=== PATIENT | female | born 1980 | race Caucasian/White ===

== ENCOUNTER 2022-03-11 10:10 | Day surgery (SDC) | payer OTHER, SELFPAY ==
[2022-03-11] VITALS (21 sets, daily range): BP systolic 95–122; BP diastolic 55–92; PULSE 43–83; RESP 10–21; TEMP 36–36.3; O2SAT 96–100
--- NOTE | ~2022-03-11 | CT_ITS ---
EXAMINATION: CT abdomen pelvis w con DATE: 03/11/2022 13:08 INDICATION: Rectal pain, abscess. Nausea and vomiting. TECHNIQUE: Computed tomography (CT) of the abdomen and pelvis was performed with 100 CC Omnipaque 300 intravenous contrast. Automated exposure control and iterative reconstruction technique were employe d. Exam dose: 248.23 mGy-cm total exam DLP. COMPARISON: None. FINDINGS: The lung bases are clear. Normal heart size. No pericardial or pleural effusion. The liver, gallbladder, bile ducts, spleen, pancreas and pancreatic duct are unremarkable. Normal morphology of the adrenal glands. No renal mass lesion or urinary tract calculus or hydroureteronephrosis. The urinary bladder is unrem arkable. Uterus and adnexal areas are unremarkable other than approximately 2.5 cm right ovarian cyst . Up to 2.5 x 3 cm x 3.4 cm abscess in the posterior perirectal area is noted, with enhancing soft tiss ue capsule. Diverticulosis of the sigmoid colon; no CT evidence of diverticulitis. No bowel obstruction or intrap eritoneal free air is detected. Normal caliber of the abdominal aorta. No intraperitoneal or retroperitoneal or pelvic mass lesion or adenopathy or ascites. Small fat-containing umbilical hernia. No suspicious osteolytic or osteoblastic lesions. IMPRESSION: 2.5 x 3 x 3.4 cm posterior perirectal abscess Diverticulosis of sigmoid colon Reviewed, dictated and finalized at [facility]. Reviewed, dictated and finalized at [facility].
[2022-03-11 10:39] LABS: Basophils Percent Auto 0.2 % (0.2-1.2); Eosinophils Absolute Auto 0.1 K/mm3 (0-0.3); Eosinophils Percent Auto 0.4 % (0-4.4); Hematocrit 42.3 % (37.0-47.0); Hemoglobin 14.4 g/dL (12.0-15.0); Immature Granulocyte Absolute 0.09 K/mm3 (0.00-0.031); Immature Granulocyte Percent A 0.6 % (0-0.5); Lymphocytes Absolute Auto 1.13 K/mm3 (0.9-3.2); Mean Corpuscular Hemoglobin 29.9 pg (26-34); Mean Corpuscular Volume 87.9 fl (80-100); Mean Platelet Volume 9.5 fl (7.4-10.4); Monocytes Absolute Auto 0.9 K/mm3 (0.1-0.6); Monocytes Percent Auto 5.8 % (2.6-8.5); Neutrophils Absolute Auto 13.9 K/mm3 (1.3-6.7); Platelet Count Result 282 k/mm3 (150-375); Red Blood Count 4.81 M/mm3 (4.2-5.4); Red Cell Distribution Width 11.9 % (11.5-14.5); White Blood Count 16.1 K/mm3 (4.5-10.0)
[2022-03-11 10:49] LABS: Alanine Aminotransferase 31 U/L (6-35); Albumin Level 4.5 g/dL (3.5-5.1); Alkaline Phosphatase 66 U/L (38-126); Anion Gap 12 mmol/L (8-16); Aspartate Amino Transferase 29 U/L (14-36); Bilirubin,Total 0.9 mg/dL (0.2-1.3); Blood Urea Nitrogen 14 mg/dL (7-17); Calcium 8.7 mg/dL (8.4-10.2); Carbon Dioxide 22 mmol/L (22-30); Chloride 106 mmol/L (98-107); Estimated CRCL calculation 67 ml/min; Estimated Glomerular Filt Rate > 60; Glucose 109 mg/dL (65-110); Lipase 62 U/L (23-300); Potassium 3.8 mmol/L (3.4-5.0); Sodium 140 mmol/L (137-145)
--- NOTE | 2022-03-11 10:57 | ED.GENADULT ---
HPI - General Adult General Chief complaint: Nausea/Vomiting/Diarrhea Stated complaint: rectal abscess with nausea and vomiting Time Seen by Provider: 03/11/22 10:14 Source: RN notes reviewed History of Present Illness HPI narrative: Patient presents emergency department from home for nausea vomiting. Patient states that she has a history of a rectal abscess that is post be having surgery on March 17 she states that the pain became more severe last night and was associated with nausea vomiting patient states she is had numerous episodes of nausea vomiting. States she is on antibiotics and is on Cipro and Flagyl per her abscess she has been seen by clinic In [facility] states that she did take tramadol last night with minimal relief she denies any fevers or chills chest pain shortness of breath or any other symptoms Related Data Allergies Allergy/AdvReac Type Severity Reaction Status Date / Time No Known Allergies Allergy Verified 03/11/22 10:12 Review of Systems Review of Systems: Gen.: Denies fevers or chills ENT: Denies congestion Respiratory: Denies shortness of breath or cough CV: Denies chest pain or palpitations GI: See HPI Musculoskeletal: Denies back pain or muscle pain Neuro: Denies numbness, tingling, weakness or focal weakness Skin: Denies rash Except as documented, all other systems reviewed and negative PMFSH Past Medical History Medical History (Updated 03/11/22 @ 16:07 by Richie Casillas DO) Patient denies significant medical history Social History Social History (Updated 03/11/22 @ 10:58 by Richie Casillas DO) Smoking status: Never smoker Exam Narrative: APPEARANCE: No acute distress, nontoxic, resting in bed EYES: EOMI HEENT: Normocephalic, atraumatic, OMM RESPIRATORY: No respiratory distress Clear to auscultation bilaterally with no rhonchi wheezing or rales. CARDIOVASCULAR: Regular rate and rhythm without murmurs rubs or gallops. ABDOMINAL: Soft, nontender, nondistended, no rebound or guarding Rectum: Tenderness and fluctuance with swelling in the 12:00 aspect no active drainage no hemorrhoids MUSCULOSKELETAl: Moves all extremities. No clubbing, cyanosis or edema. NEURO: Awake and alert. Following commands, speech normal, no focal deficits SKIN:: Warm, dry. No rashes lesions or abrasions PSYCHIATRIC: Normal affect/mood, Course Course Emergency Course: Called and discussed with Dr. Young who will come to the emergency room to evaluate the patient recommends no antibiotics at this time Dr Young and plan take patient to the OR for drainage Discussed with patient results of workup and diagnosis. Discussed need for follow-up with primary care, proper use of medication, and reasons to return to the emergency department. Patient understands and agrees to current treatment plan Vital Signs Vital signs: Vital Signs Temperature 97.4 F L 03/11/22 10:13 Pulse Rate 82 03/11/22 10:13 Respiratory Rate 16 03/11/22 10:13 Blood Pressure 122/79 03/11/22 10:13 Pulse Oximetry 100 03/11/22 10:13 Oxygen Delivery Room Air 03/11/22 10:13 Temperature 97.4 F L 03/11/22 10:13 Pulse Rate 55 L 03/11/22 14:45 Respiratory Rate 19 03/11/22 14:45 Blood Pressure 110/63 03/11/22 13:46 Pulse Oximetry 98 03/11/22 14:45 Oxygen Delivery Room Air 03/11/22 10:13 Medical Decision Making Vital Signs Vital Signs: Vital Signs Temperature 97.4 F L 03/11/22 10:13 Pulse Rate 82 03/11/22 10:13 Respiratory Rate 16 03/11/22 10:13 Blood Pressure 122/79 03/11/22 10:13 Pulse Oximetry 100 03/11/22 10:13 Oxygen Delivery Room Air 03/11/22 10:13 Temperature 97.4 F L 03/11/22 10:13 Pulse Rate 55 L 03/11/22 14:45 Respiratory Rate 19 03/11/22 14:45 Blood Pressure 110/63 03/11/22 13:46 Pulse Oximetry 98 03/11/22 14:45 Oxygen Delivery Room Air 03/11/22 10:13 Lab Data Result diagrams: 03/11/22 10:31 03/11/22 10:31
[2022-03-11] MEDS: SODIUM CHLORIDE 0.9% IV 1,000 ML 999 ML IV CONT (11:19)
[2022-03-11] MEDS: ONDANSETRON INJ 4 MG/2 ML VIAL IV PUSH ×2 (11:19→14:43)
[2022-03-11] MEDS: MORPHINE SULFATE (*CRX) 4 MG/ML INJ IV PUSH (11:20)
[2022-03-11 11:36] LABS: Lactic Acid Reflex 1.1 mmol/L (0.7-2.0)
[2022-03-11 12:02] LABS: SARS-CoV-2 RNA PCR Positive
[2022-03-11 12:48] LABS: Appearance Urine Cloudy (Clear); Bilirubin Urine Negative (Negative); Blood Urine 3+ (Negative); Glucose Urine UA Negative (Negative); Ketones Urine 3+ mg/dL (Negative); Leukocyte Esterase Ur 1+ LEU/UL (Negative); Nitrate Urine Negative (Negative); Protein Urine 1+ mg/dL (Negative); Specific Grav Ur 1.025 (1.001-1.035); Urobilinogen Urine 0.2 mg/dL (<2.0); pH Urine 5.5 (5.0-9.0)
[2022-03-11 12:50] LABS: Bacteria Urine Trace /hpf; Mucus Urine Rare /lpf; Squamous Epithelial Cell Urine Many /hpf (Few); WBC Urine >75 /hpf
[2022-03-11 13:23] LABS: Add Urine Microscopic? YES; Color Urine Dark Yellow (Yellow)
--- NOTE | 2022-03-11 14:37 | WPDANESEPPF ---
Anes - Initial Pre Proc Eval Procedure: Operation Date: 03/11/22 14:30 Proposed Procedures p Incision and Drainage Magdalena-Rectal Abscess - Ben Young MD Date/Time: 03/11/22 14:37 Pre Op Diagnosis: Perirectal abscess Patient Data Age: 41 Gender: F Height: 1.6 m Weight: 56.36 kg Last Vital Signs Temp 36.3 C L 03/11/22 10:13 Pulse 62 03/11/22 13:15 Resp 12 03/11/22 13:15 BP 101/73 03/11/22 12:46 Pulse Ox 100 03/11/22 13:15 O2 Del Method Room Air 03/11/22 10:13 Allergies Allergy/AdvReac Type Severity Reaction Status Date / Time No Known Allergies Allergy Verified 03/11/22 10:12 Home Medications Medication Instructions Recorded Confirmed Type hydrocodone 5 mg-acetaminophen 325 1 - 2 tablet PO Q6H PRN pain #10 03/11/22 Rx mg tablet tabs ketorolac 10 mg tablet 10 mg PO Q6H 4 days #16 tabs 03/11/22 Rx Laboratory Tests 03/11/22 03/11/22 03/11/22 10:31 10:31 11:18 WBC 16.1 K/mm3 H K/mm3 (4.5-10.0) RBC 4.81 M/mm3 M/mm3 (4.2-5.4) Hgb 14.4 g/dL g/dL (12.0-15.0) Hct 42.3 % % (37.0-47.0) MCV 87.9 fl fl (80-100) MCH 29.9 pg pg (26-34) MCHC 34.0 g/dl g/dl (32-36) RDW 11.9 % % (11.5-14.5) Plt Count 282 k/mm3 k/mm3 (150-375) MPV 9.5 fl fl (7.4-10.4) Immature Gran % (Auto) 0.6 % H % (0-0.5) Neut % (Auto) 86.0 % H % (45.5-73.1) Lymph % (Auto) 7.0 % L % (18.3-44.2) [place] % (Auto) 5.8 % % (2.6-8.5) Eos % (Auto) 0.4 % % (0-4.4) Baso % (Auto) 0.2 % % (0.2-1.2) Lymph # (Auto) 1.13 K/mm3 K/mm3 (0.9-3.2) [place] # (Auto) 0.9 K/mm3 H K/mm3 (0.1-0.6) Eos # (Auto) 0.1 K/mm3 K/mm3 (0-0.3) Baso # (Auto) 0.0 K/mm3 K/mm3 (0.0-0.1) Abs Immat Gran (auto) 0.09 K/mm3 H K/mm3 (0.00-0.031) Absolute Neuts (auto) 13.9 K/mm3 H K/mm3 (1.3-6.7) Absolute Nucleated RBC 0.0 K/mm3 K/mm3 (0.0-0.012) Nucleated RBC % 0.0 % % (0.0-0.2) Sodium 140 mmol/L mmol/L (137-145) Potassium 3.8 mmol/L mmol/L (3.4-5.0) Chloride 106 mmol/L mmol/L (98-107) Carbon Dioxide 22 mmol/L mmol/L (22-30) Anion Gap 12 mmol/L mmol/L (8-16) BUN 14 mg/dL mg/dL (7-17) Creatinine 0.80 mg/dL mg/dL (0.7-1.0) Estim Creat Clear Calc 67 ml/min ml/min Estimated GFR > 60 (59 - ) Glucose 109 mg/dL mg/dL (65-110) Lactic Acid Calcium 8.7 mg/dL mg/dL (8.4-10.2) Total Bilirubin 0.9 mg/dL mg/dL (0.2-1.3) AST 29 U/L U/L (14-36) ALT 31 U/L U/L (6-35) Alkaline Phosphatase 66 U/L U/L (38-126) Total Protein 8.0 g/dL g/dL (6.3-8.2) Albumin 4.5 g/dL g/dL (3.5-5.1) Lipase 62 U/L U/L (23-300) Urine Color Urine Appearance Urine pH Ur Specific [place] Urine Protein Urine Glucose (UA) Urine Ketones Ur Blood (Man) Urine Nitrate Urine Bilirubin Urine Urobilinogen Leukocyte Esterase Rfl Urine RBC Urine WBC Ur Squamous Epith Cells Urine Bacteria Urine Mucus SARS-CoV-2 RNA (RT-PCR) Positive A 03/11/22 03/11/22 11:18 12:34 WBC RBC Hgb Hct MCV MCH MCHC RDW Plt Count MPV Immature Gran % (Auto) Neut % (Auto) Lymph % (Auto) [place] % (Auto) Eos % (Auto) Baso % (Auto) Lymph # (Auto) [place] # (Auto) Eos # (Auto) Baso # (Auto) Abs Immat Gran (auto) Absolute Neut
[2022-03-11] MEDS: MORPHINE SULFATE (*CRX) 2 MG/ML INJ IV PUSH (14:42)
--- NOTE | 2022-03-11 15:04 | WPDHPUPDATE1 ---
History and Physical Update Update Date/Time: 03/11/22 15:04 History and Physical has been reviewed, including an updated exam of the patient. There are NO changes in the patient's condition. Risks, benefits, and alternatives have been discussed and questions answered. Patient agrees to proceed with procedure.
--- NOTE | 2022-03-11 15:04 | PM.SD2 ---
Same Day Admit/Disch: HPI History of Present Illness Chief complaint: Perirectal abscess Narrative: Romelia Gutierrez is a 41 year old female began having rectal pain about 5 days ago. She hoped this would go away and continued to go to work. The pain got worse. She saw her primary physician on Monday, 2 days ago, and no source of the pain could be seen. She was started on antibiotics. The pain became almost unbearable. She was given an appointment for a drainage procedure in [place] in early March. However, the pain was unbearable and she came to the emergency room today. In the emergency room she was noted to have severe rectal pain and a bulging in the posterior midline. CT scan was done and did show a posterior space perirectal abscess. The patient did have some rectal pain in 2019. Attempts were made to drain this in the emergency room and she was given antibiotics. None of this really worked and but because of the COVID pandemic, she did not follow-up and eventually it got better. Her fiance has had COVID last week. She has not had any symptoms of upper respiratory infection but was tested in the emergency room and found to be COVID positive. She was seen in the emergency room and plans are to take her for surgery to drain the perirectal abscess. PENDING SALE TO [facility] Past Medical History Medical History (Updated 03/11/22 @ 16:07 by Richie Casillas DO) Patient denies significant medical history Social History Social History (Updated 03/11/22 @ 10:58 by Richie Casillas DO) Smoking status: Never smoker Same Day Admit/Disch: Med Pre-admit Medications Home Medications Medication Instructions Recorded Confirmed Type hydrocodone 5 mg-acetaminophen 325 1 - 2 tablet PO Q6H PRN pain #10 03/11/22 Rx mg tablet tabs ketorolac 10 mg tablet 10 mg PO Q6H 4 days #16 tabs 03/11/22 Rx Exam Const: General: comfortable, no acute distress, alert and awake HENMT: Head: normocephalic and atraumatic Mouth: Yes Normal oral and palatal mucosa present Eyes: Conjunctivae: conjunctivae normal Pupils: Equal, round and reactive pupils present EOM: EOMs intact bilaterally Neck: Neck: normal visual inspection, no lymphadenopathy and nontender Resp: Effort & Inspection: normal respiratory effort Auscultation: clear to auscultation bilaterally Cardio: Rate: regular rate Rhythm: regular rhythm Heart sounds: no gallops, no murmurs and no rubs GI: Inspection: non-distended GI Palp: Yes Soft to palpation, No Tenderness to palpation present (GI), No Hepatomegaly present and No Splenomegaly present Rectal Exam: abscess (Posterior midline, extreme tenderness) Skin: Lesions: no lesions Rashes: no rashes Neuro: General: no focal motor deficits and CN's II-XI intact bilaterally Cranial nerves: Yes Equal, round and reactive pupils present, Yes Bilaterally intact EOM present, Yes facial symmetry and Yes Midline tongue present Speech: normal speech Motor exam (neuro): 5/5 motor strength present throughout and Motor abnormalities not present Extrem: General: no clubbing, cyanosis or edema and edema Psych: Affect: normal affect Thought process: Normal thought process present Insight: Good insight present (Psych) DS: Data Data Completed and Pending Labs on day of discharge: Labs from last 24 hours 03/11/22 03/11/22 03/11/22 12:34 11:18 11:18 WBC RBC Hgb Hct MCV MCH MCHC RDW Plt Count MPV Immature Gran % (Auto) Neut % (Auto) Lymph % (Auto) [place] % (Auto) Eos % (Auto) Baso % (Auto) Lymph # (Auto) [place] # (Auto) Eos # (Auto) Baso # (Auto) Abs Immat Gran (auto) Absolute Neuts (auto) Absolute Nucleated RBC Nucleated RBC % Sodium Potassium Chloride Carbon Dioxide Anion Gap BUN Creatinine Estim Creat Clear Calc Estimated GFR Glucose Lactic Acid 1.1 Calcium Total Bilirubin AST ALT [place]
--- NOTE | 2022-03-11 15:07 | PC.NURSE ---
Patient care report called to OR, RN. All questions answered at this time. Patient taken to OR by ED elevator service technician via stretcher with her belongings.
[2022-03-11] MEDS: BUPIVACAINE/EPINEPHRINE 0.25% 50 ML VIAL 20 ML INFILTRATE (15:43)
[2022-03-11] MEDS: LACTATED RINGERS 1,000 ML 30 ML IV CONT ×2 (16:00)
--- NOTE | 2022-03-11 16:16 | W.PM.PROC2 ---
Procedure Note - Detailed Date of Procedure 03/11/22 Pre-op Diagnosis Perirectal abscess Post-op Diagnosis Same Procedure Performed Incision and drainage perirectal abscess Surgeon Ben Young MD Applications Support Engineer Hector NGUYEN Anesthesia General and Local (0.25% bupivacaine with epinephrine) Indications Patient has a 5 day history of rectal pain. It got to be very severe and she came to the emergency room today. She was noted to have a fluctuant area in the posterior midline. CT scan was done and shows an abscess in the posterior space. She was seen in the emergency room and is now taken to surgery for incision and drainage. Findings Posterior space perirectal abscess, posterior midline Description of Procedure Patient was taken to surgery and induced into general anesthesia. She was then placed in prone leticia-knife position. The buttocks were taped apart. Prep and drape was carried out. A fluctuant area was noted in the posterior midline. A small Hill-Brumfield anoscope was placed in the rectum. I then pressed over the flexion area and did not see any drainage of purulent fluid from inside the rectum at all. Some local anesthetic was infiltrated in the area of the abscess and in the intra sphincteric areas as well. A single incision was made in the posterior midline. Purulent fluid came forth immediately. This was suctioned away. I then irrigated the abscess thoroughly with warm saline till the irrigant looked quite clear. A 14 [place] mushroom catheter was then placed in the abscess. It was sutured to the skin with 3-0 chromic. The wound was dressed with bulky fluffs gauze, Medipore tape and promise panties. Patient was returned to a supine position, awakened and taken to recovery in good condition. Sponge and needle counts were correct x2. Estimated Blood Loss -5 Drains Yes (Fourteen [place] mushroom catheter posterior space abscess) Packing No Pathology None sent Complications No immediate complications Condition Stable Disposition PACU [facility] Billing Surgery - Charge Forward: Surgery Billing (Incision and drainage of posterior space perirectal abscess)
[2022-03-11 18:22] LABS: Hepatitis B Surface Antigen Negative (Negative)
[2022-03-11 18:39] LABS: HIV 1/2 Ab P24 Ag Result Negative (Negative); Hepatitis C Virus Antibody Negative (Negative)
== END 2022-03-11 17:35 | disposition home or self-care (01) ==
LOC: ANHED 14:19 → ANHSURGERY 14:51
PROVIDERS: Emergency Provider Emergency Medicine; Visit Provider Surgery
PROC: (CPT 46040; principal; 2022-03-11 14:30)
DX: K61.1 Rectal abscess (principal); U07.1 COVID-19; R11.2 Nausea with vomiting, unspecified; Z11.4 Encounter for screening for human immunodeficiency virus [HIV]
CPT/HCPCS: 46040; 36415; 51701; 74177; 80053; 81001; 81025; 83605; 83690; 85025; 86703; 86803; 87040; 87086; 87340; 96361; 96374; 96375; 96376; 99285; A9270; C9803; G0432; J0330; J1100; J1885; J2250; J2270; J2405; J2704; J3010; J7030; J7120; Q9967; U0003; U0005

== ENCOUNTER 2023-03-30 12:10 | Day surgery (SDC) | payer OTHER, SELFPAY ==
[2023-03-30] VITALS (10 sets, daily range): BP systolic 81–120; BP diastolic 55–72; PULSE 51–67; RESP 10–20; TEMP 36.2–36.4; O2SAT 98–100
--- NOTE | 2023-03-30 12:52 | P.PNAN_ITS ---
Anes - Initial Pre Proc Eval Procedure: Operation Date: 03/30/23 15:30 Proposed Procedures p Incision and Drainage Recurrent Candice-Rectal Abscess - Ben Young MD Date/Time: 03/30/23 12:52 Surgeon: Ben Young MD Pre Op Diagnosis: recurrent candice rectal abcess Patient Data Age: 42 Gender: F Height: Weight: Allergies Allergy/AdvReac Type Severity Reaction Status Date / Time No Known Allergies Allergy Verified 03/30/23 11:26 Home Medications Medication Instructions Recorded Confirmed Type No Home Medications 03/30/23 03/30/23 History Patient hx anesthesia problems: none Family hx anesthesia problems: none Results Review: All pre-operative results and documents have been reviewed as part of the pre- operative evaluation. [facility] Past Medical History Medical History Patient denies significant medical history Surgical History Surgical History History of incision and drainage Incision and drainage perirectal abscess 03/11/22 Social History Social History Smoking status: Never smoker Anes - Eval Final PreProcedure Day of Procedure 03/30/23 12:52 Patient weight: normal Heart: regular rate and rhythm Lungs: clear to auscultation Airway: Mallampati scale class II Neurological: alert and oriented Last oral intake: >/= 8 hours ASA classification: II Emergent: no Anesthetic plan: proceed Anesthesia type and monitoring: general ETT and standard monitoring Results Review: All pre-operative results and documents have been reviewed as part of the pre- operative evaluation. Informed Consent: The patient's anesthetic plan and its attendant risks and benefits were discussed with the patient/family/POA. Questions were solicited and answers provided to the satisfaction of the patient/family/POA.
--- NOTE | 2023-03-30 12:52 | WPDHPUPDATE1 ---
History and Physical Update Update Date/Time: 03/30/23 12:52 History and Physical has been reviewed, including an updated exam of the patient. There are NO changes in the patient's condition. Risks, benefits, and alternatives have been discussed and questions answered. Patient agrees to proceed with procedure.
[2023-03-30] MEDS: LACTATED RINGERS 1,000 ML 30 ML IV CONT (13:01)
[2023-03-30] MEDS: ACETAMINOPHEN 500 MG TABLET 1000 MG PO (13:04)
[2023-03-30] MEDS: KETOROLAC 15 MG/ML VIAL (*BKC) IV PUSH (13:05)
[2023-03-30] MEDS: ceFAZolin 2 GM/D5W 50 ML 2 GM/50 ML BAG IVPB (13:10)
--- NOTE | 2023-03-30 13:56 | P.OP_ITS ---
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 She called the office this morning having increasing rectal pain. She was seen in the office and found to have a recurrent perirectal abscess slightly more cephalad than the previous abscess. She is taken to surgery now for incision and drainage possible fistulotomy or seton placement. Findings The abscess did communicate with the posterior midline. 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 It tracked particularly to the patient's left side. Seton were placed to the abscess cavity, the left lateral portion of the abscess, and the right lateral space. Description of Procedure Patient was taken to surgery and introduced into general anesthesia. She was then placed in prone leticia-knife position. The buttocks were taped apart. Prep and drape was carried out. A small Hill-Brumfield anoscope was placed in the rectum. I looked for an internal opening or purulent fluid draining from just inside the rectum. None was found. I then used a syringe and 18 gauge needle. There was no fluctuant area over the suspected abscess. The 1st aspiration was negative. The 2nd aspiration did bring back purulent fluid with a deep abscess. I made an incision over the 2nd point of aspiration. I dissected down to the abscess with a clamp. Purulent fluid was abundant. I enlarged the incision was able to place a finger into the abscess cavity. The purulent fluid was sucti oned away. I then used a curved clamp as well as a rectal probe. The abscess communicated to the posterior midline at the dentate line. I put a curved clamp through the internal opening and brought a red vessel loop through the internal opening and out the abscess cavity to use as a seton. I also probed and found the abscess extended to the left lateral perirectal space. I created another incision over this portion of the abscess. I similarly passed a red vessel loop from the posterior midline in to and out through the incision on the left side. Finally I probed and created a right-sided counter incision and similarly brought another red vessel loop through this and out the posterior midline. The cysts, 3 seton were placed. There was no additional purulent fluid. I used 0 silk ties and tied each of the seton to itself to make a circular type drain. The excess red vessel loop was removed in each case. We checked for any bleeding and there was none. The wound and rectum was dressed with Xeroform gauze, multiple fluffs and Promise panties. Patient was returned to a supine position. She was awakened and taken to recovery in good condition. Sponge and needle counts were correct x2. Estimated Blood Loss -20 Drains Yes (Three setons) Packing No Pathology None sent Complications No immediate complications Condition Stable Disposition PACU [facility] Billing Surgery - Charge Forward: Surgery Billing (Drainage recurrent perirectal abscess with placement of setons (3).)
== END 2023-03-30 15:29 | disposition home or self-care (01) ==
PROVIDERS: Visit Provider Surgery
PROC: (CPT 46040; principal; 2023-03-30 15:30)
DX: K61.1 Rectal abscess (principal)
CPT/HCPCS: 45005; 46020; A9270; J0330; J0690; J1100; J1885; J2250; J2405; J2704; J3010; J7120

== ENCOUNTER 2024-01-20 18:15 | Emergency (ER) | payer OTHER, SELFPAY ==
--- NOTE | ~2024-01-20 | CT_ITS ---
EXAMINATION: CT abdomen pelvis w con DATE: 01/20/2024 19:52 INDICATION: History of rectal abscess. Rectal pain for one day. TECHNIQUE: Computed tomography (CT) of the abdomen and pelvis was performed with 100 cc Omnipaque 350 intravenous contrast. The dose-length product was 264.14 mGy-cm. Automated exposure control and iter ative reconstruction technique were employed. COMPARISON: CT dated 03/11/2022 FINDINGS: Lung bases are unremarkable. Heart size normal. No significant pleural or pericardial effus ion. The liver, spleen, pancreas, adrenal glands and kidneys are unremarkable. Gallbladder is present . Nonobstructive bowel gas pattern. Small left perirectal abscess is identified measuring 1.7 x 1.6 c m. There is a communication between the abscess in the rectum. IMPRESSION: 1. Small left posterior paracentral perirectal abscess measuring 1.7 cm. Reviewed, dictated and finalized at location B.
[2024-01-20 18:20] VITALS: BP 127/89; PULSE 89; RESP 16; TEMP 36.6; O2SAT 100
--- NOTE | 2024-01-20 18:42 | ED.SKABFB ---
HPI - Skin/Abscess/Foreign Bdy General Chief complaint: Skin/Abscess/Foreign Body Stated complaint: rectal abcess Time Seen by Provider: 01/20/24 18:26 Source: patient and old records reviewed Mode of arrival: ambulatory History of Present Illness HPI narrative: Patient is a 43-year-old female who presents the ED with concern for a recurrent perirectal abscess. Patient reports hx of recurrent perirectal abscesses. Has required surgery twice in the past, last occurring last March. Performed here by Dr. Young with General surgery. Patient reports she was referred to a colorectal specialist with [facility], but she did not f/u with this. patient reports she developed similar pain and fullness in her perirectal region and just outside the area of her previous incision last night. Worsening today, difficulty sitting. She denies any drainage or bleeding from the area. Last bowel movement with this morning. Denies abdominal pain, nausea, vomiting, fevers. Related Data Allergies Allergy/AdvReac Type Severity Reaction Status Date / Time No Known Allergies Allergy Verified 05/18/23 09:14 Review of Systems Review of Systems: CONSTITUTIONAL: Denies fever, chills, or sweats. GASTROINTESTINAL: See HPI. GENITOURINARY: Denies dysuria or hematuria. All systems reviewed & are unremarkable except as noted in HPI and below PMFSH Past Medical History Medical History Patient denies significant medical history Surgical History Surgical History History of incision and drainage Incision and drainage perirectal abscess 03/11/22, 03/2023 Social History Social History Smoking status: Never smoker Exam Narrative: GENERAL: Well appearing, well-nourished, non-toxic, in no acute distress. HEAD: Normocephalic, atraumatic. RESPIRATORY: Airway patent, respirations nonlabored. Clear to auscultation bilaterally, no rales, rhonchi, wheezing. CARDIOVASCULAR: Regular rate and rhythm MUSCULOSKELETAL: Moves all extremities. No gross deformities. RECTAL: Area of induration/tenderness/erythema to L buttock, superior from anus, near midline gluteal cleft. Tenderness along midline gluteal cleft. No obvious fluctuance on external exam. Healed incisions in these areas. No drainage or bleeding. SKIN: Warm, dry, normal color. NEURO: A&O X3. Speech clear. Cranial nerves II-XII grossly intact. Steady gait. No ataxic movements. PSYCHIATRIC: Tearful. Normal interaction. Course Vital Signs Vital signs: Vital Signs Temperature 97.9 F 01/20/24 18:20 Pulse Rate 89 01/20/24 18:20 Respiratory Rate 16 01/20/24 18:20 Blood Pressure 127/89 01/20/24 18:20 Pulse Oximetry 100 01/20/24 18:20 Oxygen Delivery Room Air 01/20/24 18:20 Temperature 97.9 F 01/20/24 18:20 Pulse Rate 60 01/20/24 20:36 Respiratory Rate 16 01/20/24 20:36 Blood Pressure 101/87 01/20/24 20:36 Pulse Oximetry 98 01/20/24 20:36 Oxygen Delivery Room Air 01/20/24 18:20 MDM - Skin/Abscess/Foreign Bdy MDM Narrative Medical decision making narrative: Patient presented to ED with concern for recurrent perirectal abscess, Hx of similar, 2 previous surgeries related to this. Symptoms developed last night. Exam concerning for possible recurrent perirectal abscess. Area of induration noted, no obvious areas of fluctuance on external exam, no active drainage. Vitals are stable. CBC w/ white blood cell count of 13.9. Neutrophil predominance. No bandemia. CMP unremarkable. Inflammatory markers elevated. Lactic acid within normal at 0.8. CT of abdomen pelvis was obtained and again showing small left paracentral perirectal abscess, measuring 1.7cm. Consistent with exam. Will discuss case with Surgery. Blood cx obtained, given dose of rocephin and flagyl here. Pat
[2024-01-20 18:45] LABS: Basophils Percent Auto 0.2 % (0.2-1.2); Eosinophils Absolute Auto 0.1 K/mm3 (0-0.3); Eosinophils Percent Auto 0.5 % (0-4.4); Hematocrit 41.3 % (37.0-47.0); Hemoglobin 14.3 g/dL (12.0-15.0); Immature Granulocyte Absolute 0.05 K/mm3 (0.00-0.031); Immature Granulocyte Percent A 0.4 % (0-0.5); Lymphocytes Absolute Auto 2.74 K/mm3 (0.9-3.2); Lymphocytes Percent Auto 19.8 % (18.3-44.2); Mean Corpuscular HGB Conc 34.6 g/dl (32-36); Mean Corpuscular Volume 89.4 fl (80-100); Mean Platelet Volume 9.3 fl (7.4-10.4); Monocytes Absolute Auto 0.8 K/mm3 (0.1-0.6); Monocytes Percent Auto 5.8 % (2.6-8.5); Neutrophils Absolute Auto 10.2 K/mm3 (1.3-6.7); Neutrophils Percent Auto 73.3 % (45.5-73.1); Platelet Count Result 246 k/mm3 (150-375); Red Blood Count 4.62 M/mm3 (4.2-5.4); Red Cell Distribution Width 11.9 % (11.5-14.5); White Blood Count 13.9 K/mm3 (4.5-10.0)
[2024-01-20 18:56] LABS: Lactic Acid Reflex 0.8 mmol/L (0.7-2.0)
[2024-01-20 18:58] LABS: Alanine Aminotransferase 13 U/L (6-35); Albumin Level 4.7 g/dL (3.5-5.1); Alkaline Phosphatase 72 U/L (38-126); Anion Gap 10 mmol/L (4-12); Aspartate Amino Transferase 20 U/L (14-36); Bilirubin,Total 1.4 mg/dL (0.2-1.3); Blood Urea Nitrogen 10 mg/dL (7-17); CRP 6.3 mg/dL (<1.0); Calcium 9.1 mg/dL (8.4-10.2); Carbon Dioxide 23 mmol/L (22-30); Chloride 103 mmol/L (98-107); Estimated Glomerular Filt Rate > 60; Glucose 92 mg/dL (65-110); Sodium 136 mmol/L (137-145)
[2024-01-20] MEDS: ACETAMINOPHEN 500 MG TABLET 1000 MG PO (19:19)
[2024-01-20 20:36] VITALS: BP 101/87; PULSE 60; RESP 16; O2SAT 98
[2024-01-20] MEDS: metroNIDAZOLE 500 MG/ISO 100ML 500 MG/100 ML BAG 100 MG IVPB (21:09)
[2024-01-20 22:20] VITALS: BP 110/81; PULSE 55; RESP 18; O2SAT 98
== END 2024-01-20 22:24 | disposition home or self-care (01) ==
PROVIDERS: Emergency Provider Physician Assistant
DX: K61.1 Rectal abscess (principal)
CPT/HCPCS: 36415; 74177; 80053; 81025; 83605; 85025; 86140; 87040; 87070; 87205; 96365; 96367; 99284; A9270; J0696; J1836; Q9967